=== PATIENT | male | born 1965 | race African-American/Black ===

== ENCOUNTER 2017-03-21 09:39 | Day surgery (SDC) | payer OTHER ==
[2017-03-21 10:25] VITALS: BMI 22.6
[2017-03-21] MEDS ORDERED: PROPOFOL 20 ML ONE ×2 (11:27)
[2017-03-21 12:20] VITALS: TEMP 97.6
[2017-03-21 14:00] VITALS: BP 115/74; PULSE 80
--- NOTE | 2017-03-22 15:42 | PATH ---
Surgical Pathology Report Patient Name: JESSE LEON [facility]. Rec. #: [id number] /Age/Gender: 1965 (Age: 52) / M Account: [id number] Location: U-ENDOSCOPY Taken: 03/21/2017 Received: 03/21/2017 Reported: 03/22/2017 Physicians: Dudley Childress M.D. Specimen(s) Received BX POLYP HEPATIC FLEXURE Clinical History Guaiac positive stool Melanosis coli, colon polyp Final Diagnosis HEPATIC FLEXURE, POLYP, BIOPSY: TUBULAR ADENOMA. Electronically Signed Valorie Forrester M.D. Gross Description Received in formalin, labeled "biopsy hepatic flexure polyp" are 2 stoddard, irregular portions of soft tissue measuring 0.2 and 0.4 cm. in greatest dimension. The specimens are submitted in toto in one cassette. /03/21/201703/21/2017
== END 2017-03-21 13:25 | disposition home or self-care (01) ==
LOC: JASU-ENDO 09:39
PROVIDERS: ATTEND Internal Medicine Gastroenterology
PROC: 0DBK8ZX Excision of Ascending Colon, Via Natural or Artificial Opening Endoscopic, Diagnostic (ICD-10-PCS; principal; 2017-03-21 10:30)
DX: D12.2 Benign neoplasm of ascending colon (principal); K92.1 Melena
CPT/HCPCS: 88305-TC